=== PATIENT | male | born 1970 | race Caucasian/White ===

== ENCOUNTER → 2017-04-20 | Emergency (ER) | payer BC ==
[~2017-04-20] MED LIST: CEPHALEXIN MONOHYDRATE 500 MG CAPSULE (UD) ONE
[2017-04-20 21:09] VITALS: BP 141/82; PULSE 70; TEMP 98.2; BMI 33.0
--- NOTE | 2017-04-20 21:46 | PDOC ---
Attending Attestation - Resident Resident Name: Curtis Hollingsworth - ED Attending Attestation I have performed the following: I have examined & evaluated the patient, The case was reviewed & discussed with the resident, I agree w/resident's findings & plan, Exceptions are as noted - HPI HPI: 04/20/17 21:44 47y M presenting with laceration to the LUE after falling on a metal object. on exam pt has a large laceraton/skin avulsion. no active bleeding no n/v deficits and no signs of tendon injury. will need irrgiation an dsuture repair 04/20/17 23:[address] hollingsworth with good approximation will d/c with outpatient mangaement return in 10 days for suture removal return precuations for signs of infection - Physicial Exam PE: 04/21/17 02:26 see above - Medical Decision Making 04/21/17 02:26 adriana malhotra
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
== END | disposition home or self-care (01) ==
LOC: JER 20:59
PROC: 0HQEXZZ Repair Left Lower Arm Skin, External Approach (ICD-10-PCS; principal; 2017-04-20)
DX: S51.812A Laceration without foreign body of left forearm, initial encounter (principal); W26.8XXA Contact with other sharp object(s), not elsewhere classified, initial encounter; Y93.89 Activity, other specified; Y92.009 Unspecified place in unspecified non-institutional (private) residence as the place of occurrence of the external cause; F17.210 Nicotine dependence, cigarettes, uncomplicated
CPT/HCPCS: 99282-25

== ENCOUNTER 2017-04-26 12:16 | Emergency (ER) | payer BC ==
[2017-04-26 12:22] VITALS: BP 133/95; PULSE 69; TEMP 97.8; BMI 32.0
[2017-04-26] MEDS ORDERED: CEPHALEXIN MONOHYDRATE 500 MG CAPSULE (UD) PO ONE (12:41)
--- NOTE | 2017-04-26 12:44 | PDOC ---
Suture Removal/Wound Check HPI - History of Present Illness Chief Complaint: Wound Stated Complaint: LEFT INJURY ARM Time Seen by Provider: 04/26/17 12:31 History Source: Yes: Patient Treated at: [facility] Date of Last ED visit: 04/20/17 - Previous ED Treatment Type of procedure performed on last visit: Yes: Laceration Repair Tetanus Immunization: Yes: Up to Date Past History - Past Medical History Allergies/Adverse Reactions: Allergies No Known Allergies Allergy (Verified 04/26/17 12:18) Home Medications: Ambulatory Orders Cephalexin [Keflex] 500 mg PO Q6H #27 capsule 04/26/17 Surgical History: Yes: No Surgical History - Immunization History Tetanus Status: More than 5 years - Social History Smoking History: Yes Smoking Status: Current some day smoker Number of Ciarettes Per Day: 20 Alcohol Use: occasionally Drug Use: none Suture Removal/Wound Check PE - Physical Exam Laceration/Wound Check Symptoms: reports: Redness. denies: Fever, Chills Current Severity Level: Mild Location of Laceration/Wound: left: Forearm (laceration w/ sutures intact to dorsal aspect of L forearm w/minimal erythema limited to sutures, no sig ttp and no induration or pus) Medical Decision Making - Medical Decision Making 04/26/17 12:38 47 yo male, no sig hx, here for wound check. Pt s/p lac repair of L forearm 1 week ago after striking arm against metal at home. Pt works for the IT department here at [employer] and states he came down to ED to get some topical antibiotic as he does not have any at home. While in ED, a staff looked at wound and recommended pt be seen in ED officially as site appeared infected. Pt does admit that site appears more "red" and continues be sore. Denies f/c See exam Wound check w/ possible infected laceration Pt c/o possible worsening erythema and does have erythema limited to sutures that could be 2/2 skin rxn from sutures vs early infection. Will give keflex and have pt return for wound check in 2 days *DC/Admit/Observation/Transfer Diagnosis at time of Disposition: Visit for wound check - Discharge Dispostion Disposition: HOME Condition at time of disposition: Good - Prescriptions Prescriptions: Cephalexin [Keflex] 500 mg PO Q6H #27 capsule - Patient Instructions Additional Instructions: Take antibiotics as directed and return to ER in 2 days for wound check. Please ask for MELISSA Sullivan who will be in fast track from 11am-11 pm
== END 2017-04-26 12:53 | disposition home or self-care (01) ==
LOC: JERFT 12:16
DX: S51.812D Laceration without foreign body of left forearm, subsequent encounter (principal); W45.8XXD Other foreign body or object entering through skin, subsequent encounter; Y92.009 Unspecified place in unspecified non-institutional (private) residence as the place of occurrence of the external cause; Z48.00 Encounter for change or removal of nonsurgical wound dressing; F17.210 Nicotine dependence, cigarettes, uncomplicated
CPT/HCPCS: 99281-25

== ENCOUNTER 2024-07-02 04:43 | Day surgery (SDC) | payer OTHER ==
[2024-06-26 16:02] VITALS: BMI 32.7
[2024-07-02 08:49] VITALS: TEMP 97.7
[2024-07-02 10:16] VITALS: RESP 18
[2024-07-02 11:26] LABS: BASO % 0.5 % (0-2.0); EOS % 1.9 % (0-4.5); HEMATOCRIT 48.7 % (35.4-49); HEMOGLOBIN 16.7 GM/dL (11.7-16.9); LYMPH % 24.8 % (8-40); MCH 32.6 pg (25.7-33.7); MCHC 34.3 g/dl (32.0-35.9); MEAN CELL VOLUME 95.2 fl (80-96); MEAN PLT VOLUME 9.5 fl (7.5-11.1); MONO % 4.6 % (3.8-10.2); NEUT % 68.2 % (42.8-82.8); PLATELET COUNT 252 10^3/uL (134-434); RBC 5.12 M/mm3 (4.00-5.60); RDW 13.4 % (11.9-15.9)
[2024-07-02 11:38] LABS: CHLORIDE 106 mmol/L (98-107); POTASSIUM 4.3 mmol/L (3.5-5.1); SODIUM 137 mmol/L (136-145)
[2024-07-02 11:43] LABS: ALBUMIN 3.7 g/dl (3.4-5.0); ANION GAP 5 mmol/L (4-13); BLOOD UREA NITROGEN 13.2 mg/dL (7-18); CO2 27 mmol/L (21-32); GLUCOSE,RANDOM 213 mg/dL (74-106)
[2024-07-02 11:45] LABS: IRON SERUM 103 ug/dL (50-175); SGPT/ALT 42 U/L (13-61)
[2024-07-02 11:46] LABS: CREATININE 0.9 mg/dL (0.55-1.3); SGOT/AST 14 U/L (15-37); TOTAL IRON BINDING CAPACITY 312 ug/dL (250-450)
[2024-07-02 11:48] LABS: BILIRUBIN,TOTAL 0.6 mg/dL (0.2-1); TOT PROT 6.2 g/dl (6.4-8.2)
[2024-07-02 11:50] LABS: ALK PHOS 82 U/L (45-117)
[2024-07-02 12:24] VITALS: BP 130/82; PULSE 58
[2024-07-02 22:29] LABS: HEPATITIS B SURFACE AG MATERN NON-REACTIVE (NONREACTIVE)
== END 2024-07-02 11:15 | disposition home or self-care (01) ==
LOC: JASU-ENDO 04:43
PROVIDERS: ATTEND Internal Medicine Gastroenterology
PROC: 0DB98ZX Excision of Duodenum, Via Natural or Artificial Opening Endoscopic, Diagnostic (ICD-10-PCS; 2024-07-02)
PROC: 0DB78ZX Excision of Stomach, Pylorus, Via Natural or Artificial Opening Endoscopic, Diagnostic (ICD-10-PCS; 2024-07-02)
PROC: 0DB68ZX Excision of Stomach, Via Natural or Artificial Opening Endoscopic, Diagnostic (ICD-10-PCS; 2024-07-02)
PROC: 0DBL8ZX Excision of Transverse Colon, Via Natural or Artificial Opening Endoscopic, Diagnostic (ICD-10-PCS; principal; 2024-07-02 10:00)
DX: Z12.11 Encounter for screening for malignant neoplasm of colon (principal); K63.5 Polyp of colon; K56.41 Fecal impaction; K29.50 Unspecified chronic gastritis without bleeding; R10.13 Epigastric pain
CPT/HCPCS: 36415; 80053; 80061; 82728; 83036; 83540; 83550; 85025; 86140; 86803; 87340; 87517; 88305-TC; 88342-TC